=== PATIENT | female | born 1995 | race Asian ===

== ENCOUNTER 2017-03-27 22:25 | Observation (INO) | payer OTHER ==
[2015-12-09 18:26] VITALS: BP 104/67
[2017-03-27] MEDS ORDERED: IV RINGERS,LACTATED 1000ML 1,000 ML IV SCH (22:29)
[2017-03-27 22:54] LABS: BILIRUBIN,URINE NEGATIVE (NEG); GLUCOSE,URINE NEGATIVE (NEG); NITRITE,URINE NEGATIVE (NEG); PROTEIN,URINE NEGATIVE (NEG-TRACE)
[2017-03-27 23:00] LABS: BARBITURATES NEG (NEG); BENZODIAZEPINES NEG (NEG); CANNABINOIDS NEG (NEG); COCAINE NEG (NEG); METHADONE NEG (NEG); OPIATES NEG (NEG); PHENCYCLIDINE NEG (NEG)
[2017-03-27 23:06] LABS: BACTERIA,URINE FEW /HPF (0-FEW); RBC,URINE 0 /HPF (0-2); SQUAMOUS EPITHELIAL CELL,UR MOD /LPF
[2017-03-27] MEDS ORDERED: ONDANSETRON ODT 4 MG TAB.RAPDIS. PO ONE (23:45)
== END 2017-03-27 23:33 | disposition home or self-care (01) ==
LOC: 3 SO LND 22:25
PROVIDERS: ADMIT Obstetrics & Gynecology; ATTEND Obstetrics & Gynecology
DX: O26.892 Other specified pregnancy related conditions, second trimester (principal); R10.10 Upper abdominal pain, unspecified; Z3A.22 22 weeks gestation of pregnancy
CPT/HCPCS: 80307; 81001; G0378; G0379; G0479